=== PATIENT | female | born 1965 | race Caucasian/White ===

== ENCOUNTER 2024-06-28 17:00 | Emergency (ER) | payer MEDICAID, SELFPAY ==
[2024-06-28 17:06] VITALS: BP 146/82; PULSE 82; RESP 18; TEMP 36.9; O2SAT 99; BMI 21.4
[2024-06-28 17:42] LABS: Basophils # 0.1 10^3/uL (0.0-0.1); Eosinophils # 0.2 10^3/uL (0.0-0.8); Eosinophils % 2.3 %; Hematocrit 38.7 % (36-47); Lymphocytes # 2.7 10^3/uL (0.8-4.8); Lymphocytes % 37.3 %; Mean Corpuscular HGB Conc 31.5 g/dL (30-55); Mean Corpuscular Volume 85.6 fl (85-98); Mean Platelet Volume 10.2 fL (7.4-10.4); Monocytes # 0.4 10^3/uL (0.2-0.9); Monocytes % 5.7 %; Neutrophils # 3.88 10^3/uL (1.8-7.7); Neutrophils % 53.6 %; Nucleated Red Blood Cells % 0 %; Platelet Count 251 10^3/cmm (157-399); Red Blood Count 4.52 10^6/uL (3.85-5.65); Red Cell Distribution Width 16.2 % (12.1-15.1); White Blood Count 7.24 10^3/uL (3.29-11.43)
[2024-06-28 17:58] LABS: Alanine Aminotransferase 27 U/L (0-33); Albumin Level 4.8 g/dL (3.5-5.2); Alkaline Phosphatase 74 U/L (35-105); Anion Gap 14.3 (5-19); Aspartate Amino Transferase 23 U/L (0-32); Blood Urea Nitrogen 13 mg/dL (6-20); Calcium 9.4 mg/dL (8.5-10.5); Carbon Dioxide 28 mmol/L (22-29); Chloride 102 mmol/L (98-107); Globulin 1.7 g/dL (1.3-4.6); Glomerular Filtration Rate 73.7 mL/min (90-130); Glucose 190 mg/dL (65-115); Lipase 31 U/L (13-60); Osmolality Calculated 295 mOsm/kg (285-295); Potassium 4.3 mmol/L (3.5-5.1); Sodium 140 mmol/L (136-145); Total Bilirubin 0.3 mg/dL (0.15-1.2); Total Protein 6.5 g/dL (6.6-8.7)
[2024-06-28 17:59] LABS: Bilirubin Urine Negative (Negative); Blood Urine Negative (Negative); Glucose Urine UA Negative (Normal); Ketones Urine Negative (Negative); Leukocyte Esterase Urine 1+ (Negative); Nitrate Urine Negative (Negative); Protein Urine Negative (Negative); Specific Gravity, Urine 1.013 (1.005-1.030); Urine Appearance Cloudy (CLEAR); Urine Color Yellow (Yellow); pH Urine 5.5 (5-7)
[2024-06-28 18:04] LABS: Add Urine Microscopic? YES; Bacteria Urine 1+ /hpf; Hyaline Casts Urine 1.65 /lpf; RBC Urine 0-2 /hpf (0-2); WBC Urine 21-50 /hpf (0-5)
[2024-06-28 18:06] LABS: Add Urine Culture? Yes
[2024-06-28 19:17] VITALS: BP 155/94; PULSE 73; RESP 16; O2SAT 97
--- NOTE | 2024-06-28 19:29 | CTR_ITS ---
PROCEDURE INFORMATION: Exam: CT Abdomen And Pelvis With Contrast Exam date and time: 06/28/2024 8:54 PM Age: 58 years old Clinical indication: Abdominal pain; Additional info: Llq pain TECHNIQUE: Imaging protocol: Computed tomography of the abdomen and pelvis with contrast. Radiation optimization: All CT scans at this facility use at least one of these dose optimization techniques: automated exposure control; mA and/or kV adjustment per patient size (includes targeted exams where dose is matched to clinical indication); or iterative reconstruction. Contrast material: OMNI 350; Contrast volume: 100 ml; Contrast route: INTRAVENOUS (IV); COMPARISON: No relevant prior studies available. RADIATION DOSE METRICS: Total DLP (mGy-cm): 339.23 FINDINGS: Lungs: Subsegmental bibasilar atelectasis. The visualized lung bases are otherwise grossly clear. Diaphragm: No evidence of diaphragmatic defect. Liver: Hepatic steatosis. No evidence of focal hepatic lesion. Gallbladder and biliary ducts: Status post cholecystectomy. Mild central intrahepatic biliary dilatation. There is mild extrahepatic biliary dilatation, frequently seen post cholecystectomy. CBD measures up to 8 mm. No evidence of intraductal stone. Pancreas: Unremarkable. Spleen: Unremarkable. Adrenal glands: Unremarkable. Kidneys and ureters: No renal parenchymal abnormality. No hydronephrosis or ureteral stone. Stomach and bowel: No evidence of bowel obstruction or perienteric inflammatory changes. Moderate stool burden. Appendix: Normal appendix. Intraperitoneal space: No evidence of free air or fluid collection. Vasculature: Moderate aortobiiliac atherosclerosis without aneurysmal dilatation or dissection. The celiac trunk, SMA and RENATA are grossly patent. No evidence of IVC thrombus. The portal vein, SMV and splenic veins are grossly patent. Lymph nodes: No adenopathy. Urinary bladder: Grossly unremarkable. Reproductive: Grossly unremarkable. Bones/joints: No evidence of acute fracture or aggressive osseous lesion. L5-S1 interbody cage and posterior decompression. Soft tissues: No evidence of fluid collection or hematoma in the superficial soft tissues. CT/CT abdomen pelvis w con* [id number] IMPRESSION: 1. No evidence of acute abnormality in the abdomen or pelvis.
--- NOTE | 2024-06-28 19:30 | ED_ITS ---
HPI - Abdominal Pain 2 General: Chief Complaint: Abdominal Pain Stated Complaint: ABd Pain Time Seen by Provider: 06/28/24 19:14 Source: patient Mode of arrival: ambulatory Limitations: no limitations History of Present Illness: Patient is a 58-year-old female who is presenting to the emergency department complaining of abdominal pain for the past couple of months. States it has been constant since then, primarily has been in the left lower quadrant but she is starting to feel it in the epigastrium now as well. She also notes that she has been more bloated. She is reporting intermittent constipation, states her last bowel movement was yesterday but it was soft. No pertinent past medical history to report. No fever, chills, chest pain, shortness of breath, vaginal bleeding, urinary symptoms, or other symptoms to note at this time. MD elicited complaint: abdominal pain Pertinent past history: none Onset (ago): month(s) Pain Consistency: constant Severity: moderate Quality: fullness Migration to: epigastric Exacerbating factors: nothing Relieving factors: nothing Associated Symptoms: Reports bloating and constipation; Denies change in stool character, chills, diarrhea, dysuria, fever(s), hematochezia, nausea and vomiting Related Data Previous Rx's Medication Instructions Recorded polyethylene glycol 3350 17 4 g PO DAILY #119 grams 06/28/24 gram/dose oral powder (Miralax) Allergies Allergy/AdvReac Type Severity Reaction Status Date / Time Sulfa (Sulfonamide Allergy Unknown Verified 06/28/24 17:09 Antibiotics) Review of Systems 2 General: Reports: 10 or more systems reviewed and unremarkable except in HPI and below Const: Denies: fever(s), chills, change in appetite, change in weight or diaphoresis ENMT: Denies: throat pain or hoarseness Card: Denies: chest pain, palpitations or lightheadedness Resp: Denies: dyspnea, productive cough or wheezing GI: Reports: abdominal pain, constipation and bloating; Denies: nausea, vomiting, diarrhea, change in stool character or hematochezia : Denies: flank pain, difficulty voiding, dysuria, urinary frequency, urinary urgency or vaginal bleeding Musc: Denies: neck pain or back pain Skin/Breast: Denies: rash or new lesions Neuro: Denies: headache(s) or dizziness Physical Exam 2 Const: COMMON NORMALS: no acute distress, average body habitus, patient oriented x3, no limitations, healthy appearing, alert and well nourished G ENERAL APPEARANCE: cooperative and comfortable ORIENTATION/CONSCIOUSNESS: Yes awake HENMT: COMMON NORMALS: normocephalic, atraumatic, hearing grossly normal bilaterally, external ears normal, Normal external nose present, Normal nasal mucous membranes and turbinates present and moist oral mucous membranes HEAD & SCALP: normocephalic and atraumatic NOSE: Normal external nose present and Normal nasal mucous membranes and turbinates present EXTERNAL EAR: Yes external ears normal Eye: COMMON NORMALS: Equal, round and reactive pupils present, EOMs intact bilaterally, conjunctivae normal and normal visual boss by confrontation C ONJUNCTIVA: Yes conjunctivae normal PUPIL: Yes Equal, round and reactive pupils present Neck/C-Spine: COMMON NORMALS: full ROM, supple, no meningeal signs and no JVD Resp: COMMON NORMALS: normal respiratory effort, No retractions, No use of accessory muscles and clear to auscultation bilaterally AUSCULTATION: clear to auscultation bilaterally, no crackles, no rales, no rhonchi and no wheezes Cardio: COMMON NORMALS: no JVD, regular rate, regular rhythm, S1 normal heart sound present, S2 normal heart sound present, No gallops present (Cardio), No clicks present (Cardio), No murmurs present (Cardio), No rub (Cardio) and Peripheral pulses 2+ throughout RATE: regular rate RHYTHM: regular rhythm HEART SOUNDS: S1 normal heart sound present and S2 normal heart sound present PERIPHERAL PULSES: Peripheral pulses 2+ throughout GI: COMMON NORMALS: Soft to palpation, non-tender, No hepatosplenomegaly present and no masses AUSCULTATION: Yes Hyperactive bowel sounds present P ALPATION: Yes Soft to palpation, No Guarding due to palpation present (GI), No Rigid due to palpation and Yes No hepatosplenomegaly present RECTAL EXAM: d eferred : COMMON NORMALS: Yes no CVA tenderness BLADDER/KIDNEY EXAM: Yes no CVA tenderness Back/Pelvis: COMMON NORMALS: no CVA tenderness Extremity: COMMON NORMALS: normal to inspection and full ROM Neuro: COMMON NORMALS: patient oriented x3, moves all extremities, no focal motor deficits and no sensory deficits noted SENSORIUM/ORIENTATION: Yes alert MENINGEAL SIGNS: Yes no meningeal signs Psych: COMMON NORMALS: mental status grossly normal, cooperative and speech normal SPEECH: Yes normal speech Skin: COMMON NORMALS: no rashes or lesions noted GENERAL SKIN EXAM: no rashes or lesions noted Course 2 Vital Signs: Vital signs: Vital Signs Temperature 98.4 F 06/28/24 17:06 Pulse Rate 59 L 06/28/24 20:51 Respiratory Rate 14 06/28/24 20:51 Blood Pressure 130/72 06/28/24 20:51 Pulse Oximetry 97 06/28/24 20:51 Oxygen Delivery Me thod Room Air 06/28/24 20:51 MDM - Abdominal Pain Medical Decision Making Patient has a couple months of left lower quadrant pain. Her labs here today were normal. CT overall normal, there was moderate stool burden noted and I do think her pain is likely related to constipation as she is also had changes in her bowel habits over the past couple of months. Will prescribe MiraLAX, encouraged her to increase her fluid intake and dietary fiber. Also told her to follow-up with primary care, she had noted that her last colonoscopy was about 4 5 years ago and she did have polyps, so encouraged her to inquire about this with primary care. Return precautions were given. Lab Data 06/28/24 17:35 06/28/24 17:35 Labs/Radiology: Radiology Impressions Abdomen/Pelvis CT 06/28/24 19:29 IMPRESSION: 1. No evidence of acute abnormality in the abdomen or pelvis. Laboratory Results WBC 7.24 10^3/uL (3.29-11.43) 06/28/24 17:35 RBC 4.52 10^6/uL (3.85-5.65) 06/28/24 17:35 Hgb 12.20 g/dL (11.27-16.99) 06/28/24 17:35 Hct 38.7 % (36-47) 06/28/24 17:35 MCV 85.6 fl (85-98) 06/28/24 17:35 MCH 27.0 pg (27-33) 06/28/24 17:35 MCHC 31.5 g/dL (30-55) 06/28/24 17:35 RDW 16.2 % (12.1-15.1) H 06/28/24 17:35 Plt Count 251 10^3/cmm (157-399) 06/28/24 17:35 MPV 10.2 fL (7.4-10.4) 06/28/24 17:35 Neut % (Auto) 53.6 % 06/28/24 17:35 Lymph % (Auto) 37.3 % 06/28/24 17:35 [place] % (Auto) 5.7 % 06/28/24 17:35 Eos % (Auto) 2.3 % 06/28/24 17:35 Baso % (Auto) 1.0 % 06/28/24 17:35 Neut # (Auto) 3.88 10^3/uL (1.8-7.7) 06/28/24 17:35 Lymph # (Auto) 2.7 10^3/uL (0.8-4.8) 06/28/24 17:35 [place] # (Auto) 0.4 10^3/uL (0.2-0.9) 06/28/24 17:35 Eos # (Auto) 0.2 10^3/uL (0.0-0.8) 06/28/24 17:35 Baso # (Auto) 0.1 10^3/uL (0.0-0.1) 06/28/24 17:35 Nucleated RBC % (auto) 0 % 06/28/24 17:35 Nucleated RBCs # 0.0 /100WBC 06/28/24 17:35 Sodium 140 mmol/L (136-145) 06/28/24 17:35 Potassium 4.3 mmol/L (3.5-5.1) 06/28/24 17:35 Chloride 102 mmol/L (98-107) 06/28/24 17:35 Carbon Dioxide 28 mmol/L (22-29) 06/28/24 17:35 Anion Gap 14.3 (5-19) 06/28/24 17:35 BUN 13 mg/dL (6-20) 06/28/24 17:35 Creatinine 0.8 mg/dL (0.5-0.9) 06/28/24 17:35 GFR Calculation 73.7 mL/min (90-130) L 06/28/24 17:35 Glucose 190 mg/dL (65-115) H 06/28/24 17:35 Calculated Osmolality 295 mOsm/kg (285-295) 06/28/24 17:35 Calcium 9.4 mg/dL (8.5-10.5) 06/28/24 17:35 Total Bilirubin 0.3 mg/dL (0.15-1.2) 06/28/24 17:35 AST 23 U/L (0-32) 06/28/24 17:35 ALT 27 U/L (0-33) 06/28/24 17:35 Alkaline Phosphatase 74 U/L (35-105) 06/28/24 17:35 Total Protein 6.5 g/dL (6.6-8.7) L 06/28/24 17:35 Albumin 4.8 g/dL (3.5-5.2) 06/28/24 17:35 Globulin 1.7 g/dL (1.3-4.6) 06/28/24 17:35 Lipase 31 U/L (13-60) 06/28/24 17:35 Urine Color Yellow (Yellow) 06/28/24 17:34 Urine Appearance Cloudy (CLEAR) A 06/28/24 17:34 Urine pH 5.5 (5-7) 06/28/24 17:34 Ur Specific [place] 1.013 (1.005-1.030) 06/28/24 17:34 Urine Protein Negative (Negative) 06/28/24 17:34 Urine Glucose (UA) Negative (Normal) 06/28/24 17:34 Urine Ketones Negative (Negative) 06/28/24 17:34 Urine Blood Negative (Negative) 06/28/24 17:34 Urine Nitrate Negative (Negative) 06/28/24 17:34 Urine Bilirubin Negative (Negative) 06/28/24 17:34 Urine Urobilinogen 1.0 mg/dL (Negative) 06/28/24 17:34 Ur Leukocyte Esterase 1+ (Negative) A 06/28/24 17:34 Urine RBC 0-2 /hpf (0-2) 06/28/24 17:34 Urine WBC 21-50 /hpf (0-5) H 06/28/24 17:34 Ur Squamous Epith Cells 11-20 /hpf (0-5) 06/28/24 17:34 Amorphous Sediment Not Reportable 06/28/24 17:34 Urine Bacteria 1+ /hpf (NONE) H 06/28/24 17:34 Hyaline Casts 1.65 /lpf 06/28/24 17:34 All radiology interpretation(s) finalized by discharge Discharge Plan Discharge Patient Disposition: Home Clinical Impression: Constipation Qualifiers: Constipation type: unspecified constipation type Qualified Code(s): K59.00 - Constipation, unspecified Condition: Stable Prescriptions: New polyethylene glycol 3350 [Miralax] 17 gram/dose powder 4 g PO DAILY Qty: 119 0RF Discharge Orders: Discharge ED (Routine); Ordered 06/28/24 Ordered By: Yasmany Silverio Patient Instructions: Constipation (ED) Activity Restrictions/Additional Instructions: Take MiraLAX. Increase your dietary fiber intake. Drink plenty of fluids. Follow-up with primary care and return with any new or worsening. Coding Level of Care Code ED Comp Field Case Manager for Trupti Cohen
[2024-06-28 19:44] VITALS: BP 107/62; PULSE 68; RESP 15; O2SAT 97
[2024-06-28] MEDS: iohexol 350 mg/mL 500 mL Btl (per mL) IV (19:58)
[2024-06-28 20:51] VITALS: BP 130/72; PULSE 59; RESP 14; O2SAT 97
[2024-06-28 21:01] VITALS: BP 131/72; PULSE 58; O2SAT 96
== END 2024-06-28 21:02 | disposition home or self-care (01) ==
PROVIDERS: Emergency Medicine; Emergency Provider Physician Assistant
DX: K59.00 Constipation, unspecified (principal)
CPT/HCPCS: 74177; 80053; 81001; 83690; 85025; 87086; 99285